=== PATIENT | male | born 1950 | race Caucasian/White ===

== ENCOUNTER 2024-07-18 04:17 | Inpatient (IN) | payer MEDICARE, MEDICAID ==
[2024-07-18] VITALS (11 sets, daily range): BP systolic 145–186; BP diastolic 65–84; PULSE 64–87; RESP 16–20; TEMP 97.1–98.5; O2SAT 94–98
[~2024-07-18] VITALS: Ht 182.9 cm; Wt 123.0 kg
[~2024-07-18 04:17] MED LIST: ASPI-1264 PO; CALC-1215 PO; DIGO250T PO; GLUC1CAP36 PO; MAGN400C PO; MULT-1085 PO; POTA99TA26 PO; SIMV-42 PO; VALS1TAB73 PO; [UNRECOGNIZED DRUG - OTHER] PO
[2024-07-18 04:40] LABS: BASOPHILS % (AUTO) 0.6 % (0-1); EOSINOPHILS # (AUTO) 0.2 X10'3 (0-0.9); EOSINOPHILS % (AUTO) 2.9 % (0-6); HEMATOCRIT 39.8 % (42.0-52.0); HEMOGLOBIN 13.3 g/dl (14.0-17.9); LYMPHOCYTES # (AUTO) 1.4 X10'3 (1.1-4.8); MEAN CORPUSCULAR HEMOGLOBIN 29.7 PG (27.0-31.0); MEAN CORPUSCULAR HGB CONC 33.3 g/dL (33.0-36.5); MEAN CORPUSCULAR VOLUME 89.1 FL (78-98); MEAN PLATELET VOLUME 8.4 FL (7.4-10.4); MONOCYTES # (AUTO) 0.7 X10'3 (0-0.9); MONOCYTES % (AUTO) 9.7 % (2-12); NEUTROPHILS # (AUTO) 5.1 X10'3 (1.8-7.7); NEUTROPHILS % (AUTO) 67.8 % (42-75); PLATELET COUNT 207 X10'3 (140-440); RED BLOOD COUNT 4.46 X10'6 (4.70-6.10); RED CELL DISTRIBUTION WIDTH 15.8 % (11.5-14.5); WHITE BLOOD COUNT 7.5 X10'3 (4.5-11.0)
[2024-07-18 05:02] LABS: ALANINE AMINOTRANSFERASE 20 U/L (12-78); ALBUMIN 3.5 G/DL (3.4-5.0); ALBUMIN/GLOBULIN RATIO 0.9 (1.1-1.5); ALKALINE PHOSPHATASE 77 IU/L (46-116); ANION GAP 9 (8-16); ASPARTATE AMINO TRANSFERASE 14 U/L (10-37); BILIRUBIN,TOTAL 0.3 MG/DL (0.1-1.0); BLOOD UREA NITROGEN 30 MG/DL (7-18); CALCIUM 9.7 MG/DL (8.5-10.1); CHLORIDE 105 MMOL/L (99-107); CREATININE 0.81 MG/DL (0.60-1.10); GLUCOSE 237 MG/DL (70-104); POTASSIUM 3.8 MMOL/L (3.5-5.1); PRO BRAIN NATRIURETIC PEPTIDE 235 PG/ML (0-125); SODIUM 142 MMOL/L (135-145); TOTAL PROTEIN 7.3 G/DL (6.4-8.2); eCRCL 92 ML/MIN; eGFR > 90 ML/MIN
[2024-07-18] MEDS ORDERED: magnesium sulf-water 4G/100mL 100 ML IV PRN (05:30)
[2024-07-18] MEDS ORDERED: mag hydrox/Alum hydrox/simeth 30ml oral suspension PO PRN (05:30)
[2024-07-18] MEDS ORDERED: morphine 2 MG/ML inj. syringe IV PRN ×2 (05:30)
[2024-07-18] MEDS ORDERED: magnesium sulf-water 2g/50mL 50 ML IV PRN (05:30)
[2024-07-18] MEDS ORDERED: acetaminophen 325mg tablet PO PRN (05:30)
[2024-07-18] MEDS ORDERED: potassium Cl 20 mEq SR tablet PO PRN ×2 (05:30)
[2024-07-18] MEDS ORDERED: potassium Cl 40MEQ/1/2NS 520ml 520 ML IV PRN (05:30)
[2024-07-18] MEDS ORDERED: magnesium hydroxide 30ml (MOM) UD suspension PO PRN (05:30)
[2024-07-18] MEDS ORDERED: magnesium Cl slow-release 64mg tablet PO PRN (05:30)
[2024-07-18] MEDS ORDERED: ondansetron/PF 4mg/2ml inj IV PRN (05:30)
[2024-07-18] MEDS ORDERED: docusate sod 100mg capsule PO PRN (05:30)
[2024-07-18] MEDS ORDERED: dextrose 50%-water 50ml dispensing syringe IV PRN ×2 (06:15)
[2024-07-18] MEDS ORDERED: glucagon, human recombinant 1mg kit SUBCUT PRN (06:15)
[2024-07-18] MEDS ORDERED: DEXTROSE 15 GM of carb/4 tabs (each vial/BOTTLE has 4 tablets) PO PRN ×2 (06:15)
[2024-07-18] MEDS: PERFLUTREN PROTEIN-A MICROSPHR (Optison) 0.22 MG/ML 3ML VIAL IV ONE (06:55)
[2024-07-18] MEDS: K and/or MAG REPLACEMENT MC SCH (06:58)
[2024-07-18 07:14] LABS: MAGNESIUM 2.4 MG/DL (1.5-2.4); THYROID STIMULATING HORMONE 0.37 ulU/ml (0.34-4.50)
[2024-07-18 07:19] LABS: POTASSIUM 4.3 MMOL/L (3.5-5.1)
[2024-07-18] MEDS: pantoprazole 40mg Tablet.DR PO SCH (07:47)
[2024-07-18] MEDS: furosemide 40mg/4ml inj IV SCH (07:49)
[2024-07-18 07:51] LABS: BILIRUBIN,URINE NEGATIVE (Neg); CLARITY,URINE CLEAR (Clear); COLOR,URINE YELLOW (Yellow); GLUCOSE, URINE 100 mg/dl (Neg); KETONES,URINE NEGATIVE (Neg); LEUKOCYTE ESTERASE ,URINE NEGATIVE (Neg); NITRITES, URINE NEGATIVE (Neg); OCCULT BLOOD,URINE NEGATIVE (Neg); PROTEIN,URINE NEGATIVE (Neg); UROBILINOGEN,URINE 0.2 E.U/dL (0.2-1.0)
[2024-07-18] MEDS: heparin, porcine 5000 units/ml vial SQ SCH (07:52)
[2024-07-18] MEDS: INSULIN LISPRO 100 UNIT/ML INSULN.PEN MULTI-DOSE SQ SCH (07:57)
[2024-07-18 08:05] LABS: UA COLLECTION TYPE NON-SPECIFIED
[2024-07-18 08:09] LABS: APTT 23 SECONDS (22-32); PROTHROMBIN TIME 10.2 SECONDS (9.0-12.0)
[2024-07-18] MEDS ORDERED: aminophylline 500mg/20ml vial IV PRN (08:55)
[2024-07-18] MEDS: regadenoson 0.4mg/5ml syringe IV ONE ×2 (09:23→09:57)
[2024-07-18] MEDS ORDERED: hydrALAZINE 20mg/ml inj. IV PRN (14:10)
[2024-07-18] MEDS: digoxin 250mcg (0.25mg) tablet PO ONE (15:50)
[2024-07-18] MEDS: losartan 50mg tablet PO STA (15:50)
[2024-07-18] MEDS ORDERED: pantoprazole 40mg Tablet.DR PO SCH (18:00)
[2024-07-18] MEDS: aspirin 81mg, enteric-coated 1 TAB TABLET.DR PO ONE (18:24)
[2024-07-18 18:25] LABS: CHOL/HDL RATIO 2.9 (0.00-4.99); CHOLESTEROL 150 MG/DL (0-200); HDL CHOLESTEROL 52 MG/DL (35-60); LDL CHOLESTEROL 88 MG/DL (50-100); TRIGLYCERIDES 110 MG/DL (20-135)
[2024-07-18] MEDS: pantoprazole 40 MG vial IV SCH (20:26)
[2024-07-18] MEDS: atorvastatin 20mg tablet PO SCH (20:29)
[2024-07-18] MEDS: insulin glargine (Lantus) pen - multi-dose SQ SCH (21:26)
[2024-07-19 06:00] VITALS: BP 153/75; PULSE 77; RESP 16; TEMP 98.2; O2SAT 96
[2024-07-19 06:19] LABS: BASOPHILS % (AUTO) 0.4 % (0-1); EOSINOPHILS # (AUTO) 0.2 X10'3 (0-0.9); EOSINOPHILS % (AUTO) 2.5 % (0-6); HEMATOCRIT 36.6 % (42.0-52.0); HEMOGLOBIN 12.3 g/dl (14.0-17.9); LYMPHOCYTES # (AUTO) 1.5 X10'3 (1.1-4.8); LYMPHOCYTES % (AUTO) 18.8 % (21-51); MEAN CORPUSCULAR HEMOGLOBIN 29.8 PG (27.0-31.0); MEAN CORPUSCULAR HGB CONC 33.7 g/dL (33.0-36.5); MEAN CORPUSCULAR VOLUME 88.5 FL (78-98); MEAN PLATELET VOLUME 8.5 FL (7.4-10.4); MONOCYTES # (AUTO) 0.6 X10'3 (0-0.9); MONOCYTES % (AUTO) 7.2 % (2-12); NEUTROPHILS # (AUTO) 5.6 X10'3 (1.8-7.7); NEUTROPHILS % (AUTO) 71.1 % (42-75); PLATELET COUNT 186 X10'3 (140-440); RED BLOOD COUNT 4.14 X10'6 (4.70-6.10); RED CELL DISTRIBUTION WIDTH 15.6 % (11.5-14.5); WHITE BLOOD COUNT 7.9 X10'3 (4.5-11.0)
[2024-07-19 06:38] LABS: ALANINE AMINOTRANSFERASE 21 U/L (12-78); ALBUMIN 3.1 G/DL (3.4-5.0); ALBUMIN/GLOBULIN RATIO 0.9 (1.1-1.5); ALKALINE PHOSPHATASE 71 IU/L (46-116); ANION GAP 6 (8-16); ASPARTATE AMINO TRANSFERASE 7 U/L (10-37); BILIRUBIN,TOTAL 0.4 MG/DL (0.1-1.0); BLOOD UREA NITROGEN 20 MG/DL (7-18); BUN/CREATININE RATIO 31.7 (10.0-20.0); CALCIUM 8.5 MG/DL (8.5-10.1); CHLORIDE 105 MMOL/L (99-107); CHOL/HDL RATIO 3.4 (0.00-4.99); CHOLESTEROL 145 MG/DL (0-200); CREATININE 0.63 MG/DL (0.60-1.10); GLUCOSE 208 MG/DL (70-104); HDL CHOLESTEROL 43 MG/DL (35-60); LDL CHOLESTEROL 69 MG/DL (50-100); POTASSIUM 3.6 MMOL/L (3.5-5.1); SODIUM 141 MMOL/L (135-145); TOTAL CARBON DIOXIDE 30.1 MMOL/L (24-32); TOTAL PROTEIN 6.5 G/DL (6.4-8.2); TRIGLYCERIDES 175 MG/DL (20-135); eCRCL 118 ML/MIN; eGFR > 90 ML/MIN
[2024-07-19] MEDS: losartan 50mg tablet PO SCH ×2 (07:16→07:44)
[2024-07-19] MEDS: digoxin 250mcg (0.25mg) tablet PO SCH (07:16)
[2024-07-19] MEDS: aspirin 81mg, enteric-coated 1 TAB TABLET.DR PO SCH (07:16)
[2024-07-19] MEDS: EMPAGLIFLOZIN 10 MG TABLET PO SCH (07:51)
[2024-07-19] MEDS: metoprolol succinate 25mg (24-HOUR) SR. Tablet PO SCH (07:51)
[2024-07-19 10:00] VITALS: BP 127/70; PULSE 60; RESP 17; TEMP 97.9; O2SAT 95
[2024-07-19] MEDS: spironolactone 25 MG tablet PO ONE (13:22)
[2024-07-19 18:00] VITALS: BP 151/85; PULSE 66; RESP 15; TEMP 98.7; O2SAT 97
[2024-07-19 20:00] VITALS: RESP 15; O2SAT 97
[2024-07-19 22:00] VITALS: BP 150/77; PULSE 90; RESP 16; TEMP 98.8; O2SAT 98
[2024-07-19] MEDS: insulin glargine (Lantus) pen - multi-dose SQ SCH (22:17)
[2024-07-20 06:00] VITALS: BP 164/84; PULSE 61; RESP 16; TEMP 97.7; O2SAT 95
[2024-07-20 06:47] LABS: BASOPHILS % (AUTO) 0.5 % (0-1); EOSINOPHILS # (AUTO) 0.2 X10'3 (0-0.9); EOSINOPHILS % (AUTO) 3.4 % (0-6); HEMATOCRIT 39.3 % (42.0-52.0); HEMOGLOBIN 13.1 g/dl (14.0-17.9); LYMPHOCYTES # (AUTO) 1.6 X10'3 (1.1-4.8); LYMPHOCYTES % (AUTO) 23.5 % (21-51); MEAN CORPUSCULAR HEMOGLOBIN 29.6 PG (27.0-31.0); MEAN CORPUSCULAR HGB CONC 33.4 g/dL (33.0-36.5); MEAN CORPUSCULAR VOLUME 88.7 FL (78-98); MEAN PLATELET VOLUME 8.4 FL (7.4-10.4); MONOCYTES # (AUTO) 0.6 X10'3 (0-0.9); MONOCYTES % (AUTO) 8.5 % (2-12); NEUTROPHILS # (AUTO) 4.3 X10'3 (1.8-7.7); NEUTROPHILS % (AUTO) 64.1 % (42-75); PLATELET COUNT 191 X10'3 (140-440); RED BLOOD COUNT 4.43 X10'6 (4.70-6.10); WHITE BLOOD COUNT 6.7 X10'3 (4.5-11.0)
[2024-07-20 07:10] LABS: ALANINE AMINOTRANSFERASE 18 U/L (12-78); ALBUMIN 3.3 G/DL (3.4-5.0); ALBUMIN/GLOBULIN RATIO 0.9 (1.1-1.5); ALKALINE PHOSPHATASE 75 IU/L (46-116); ANION GAP 8 (8-16); ASPARTATE AMINO TRANSFERASE 12 U/L (10-37); BILIRUBIN,TOTAL 0.5 MG/DL (0.1-1.0); BLOOD UREA NITROGEN 22 MG/DL (7-18); BUN/CREATININE RATIO 31.9 (10.0-20.0); CALCIUM 8.7 MG/DL (8.5-10.1); CHLORIDE 106 MMOL/L (99-107); CREATININE 0.69 MG/DL (0.60-1.10); GLUCOSE 181 MG/DL (70-104); MAGNESIUM 2.2 MG/DL (1.5-2.4); POTASSIUM 3.9 MMOL/L (3.5-5.1); SODIUM 141 MMOL/L (135-145); TOTAL CARBON DIOXIDE 27.5 MMOL/L (24-32); TOTAL PROTEIN 7.1 G/DL (6.4-8.2); eCRCL 108 ML/MIN; eGFR > 90 ML/MIN
[2024-07-20] MEDS ORDERED: VALS1TAB73 PO (07:19)
[2024-07-20] MEDS ORDERED: METO-395 PO (07:19)
[2024-07-20] MEDS ORDERED: NOR5T PO (07:20)
[2024-07-20] MEDS ORDERED: METF-436 PO (07:25)
[2024-07-20] MEDS ORDERED: SITA25TA3 PO (07:25)
[2024-07-20] MEDS ORDERED: EMPA10TA PO (07:25)
[2024-07-20 08:00] VITALS: RESP 16; O2SAT 95
[2024-07-20] MEDS ORDERED: carvedilol 6.25mg tablet PO SCH (08:00)
[2024-07-20] MEDS: hydrALAZINE 20mg/ml inj. IV ONE (08:31)
[2024-07-20] MEDS: amLODIPine 5mg tablet PO SCH (08:31)
[2024-07-20] MEDS: spironolactone 25 MG tablet PO SCH (08:35)
[2024-07-20 10:00] VITALS: BP 142/65; PULSE 76; RESP 16; TEMP 97.9; O2SAT 95
[2024-07-20 18:00] VITALS: BP 129/81; PULSE 68; RESP 17; TEMP 98.1; O2SAT 97
[2024-07-20 20:00] VITALS: RESP 17; O2SAT 97
[2024-07-20] MEDS: insulin glargine (Lantus) pen - multi-dose SQ SCH (21:02)
[2024-07-20] MEDS: pantoprazole 40mg Tablet.DR PO SCH (21:04)
[2024-07-20 22:00] VITALS: BP 148/74; PULSE 69; RESP 15; TEMP 98.1; O2SAT 98
[2024-07-21 06:00] VITALS: BP 145/76; PULSE 61; RESP 17; TEMP 98; O2SAT 95
[2024-07-21 06:15] LABS: BASOPHILS % (AUTO) 0.3 % (0-1); EOSINOPHILS # (AUTO) 0.3 X10'3 (0-0.9); EOSINOPHILS % (AUTO) 3.5 % (0-6); HEMATOCRIT 41.7 % (42.0-52.0); HEMOGLOBIN 13.8 g/dl (14.0-17.9); LYMPHOCYTES # (AUTO) 1.6 X10'3 (1.1-4.8); LYMPHOCYTES % (AUTO) 21.4 % (21-51); MEAN CORPUSCULAR HEMOGLOBIN 29.7 PG (27.0-31.0); MEAN CORPUSCULAR HGB CONC 33.2 g/dL (33.0-36.5); MEAN CORPUSCULAR VOLUME 89.6 FL (78-98); MEAN PLATELET VOLUME 8.9 FL (7.4-10.4); MONOCYTES # (AUTO) 0.6 X10'3 (0-0.9); MONOCYTES % (AUTO) 7.6 % (2-12); NEUTROPHILS # (AUTO) 4.9 X10'3 (1.8-7.7); NEUTROPHILS % (AUTO) 67.2 % (42-75); PLATELET COUNT 195 X10'3 (140-440); RED BLOOD COUNT 4.65 X10'6 (4.70-6.10); RED CELL DISTRIBUTION WIDTH 15.9 % (11.5-14.5); WHITE BLOOD COUNT 7.3 X10'3 (4.5-11.0)
[2024-07-21 06:52] LABS: ANION GAP 7 (8-16); CHLORIDE 105 MMOL/L (99-107); GLUCOSE 171 MG/DL (70-104); SODIUM 141 MMOL/L (135-145); TOTAL CARBON DIOXIDE 28.6 MMOL/L (24-32)
[2024-07-21 06:53] LABS: ALANINE AMINOTRANSFERASE 18 U/L (12-78); ALBUMIN 3.3 G/DL (3.4-5.0); ALBUMIN/GLOBULIN RATIO 0.8 (1.1-1.5); ALKALINE PHOSPHATASE 76 IU/L (46-116); ASPARTATE AMINO TRANSFERASE 7 U/L (10-37); BILIRUBIN,TOTAL 0.5 MG/DL (0.1-1.0); BLOOD UREA NITROGEN 25 MG/DL (7-18); BUN/CREATININE RATIO 30.1 (10.0-20.0); CALCIUM 8.9 MG/DL (8.5-10.1); CREATININE 0.83 MG/DL (0.60-1.10); MAGNESIUM 2.5 MG/DL (1.5-2.4); TOTAL PROTEIN 7.2 G/DL (6.4-8.2); eCRCL 90 ML/MIN; eGFR > 90 ML/MIN
[2024-07-21 07:34] VITALS: BP_SYST 145; PULSE 64
[2024-07-21 08:00] VITALS: RESP 17; O2SAT 95
== END 2024-07-21 10:15 | disposition home health service (06) | DRG 291 ==
LOC: ER 04:18 → UNDOADMIN 05:27 → ED HOLD 05:27 → ORTHO 4S 10:54
PROVIDERS: ADMIT Internal Medicine Critical Care Medicine; ATTEND Nurse Practitioner Family
PROC: 4A02XM4 Measurement of Cardiac Total Activity, External Approach (ICD-10-PCS; principal; 2024-07-18)
PROC: 3E033HZ Introduction of Radioactive Substance into Peripheral Vein, Percutaneous Approach (ICD-10-PCS; 2024-07-18)
DX: I11.0 Hypertensive heart disease with heart failure (principal); I50.43 Acute on chronic combined systolic (congestive) and diastolic (congestive) heart failure; E11.9 Type 2 diabetes mellitus without complications; E78.00 Pure hypercholesterolemia, unspecified; R09.02 Hypoxemia; I27.20 Pulmonary hypertension, unspecified; D64.9 Anemia, unspecified; I25.10 Atherosclerotic heart disease of native coronary artery without angina pectoris; I48.91 Unspecified atrial fibrillation; E66.812 Obesity, class 2; Z68.36 Body mass index [BMI] 36.0-36.9, adult; Z79.82 Long term (current) use of aspirin; Z79.899 Other long term (current) drug therapy; Z90.49 Acquired absence of other specified parts of digestive tract; I25.2 Old myocardial infarction; Z87.891 Personal history of nicotine dependence; Z79.4 Long term (current) use of insulin; Z82.3 Family history of stroke
CPT/HCPCS: 36415; 71045; 78452; 80053; 80061; 81003; 82948; 83036; 83735; 83880; 84132; 84443; 84484; 85025; 85610; 85730; 87081; 93005; 93017; 93306; 96372; 96374; 96375; 97116; 97161; 97530; 99285; A9500; G0378; J0360; J1644; J1815; J1940; J2470; J2785